=== PATIENT | female | born 1955 | race Caucasian/White ===

== ENCOUNTER → 2019-10-18 | Outpatient (CLI) | payer OTHER, MEDICARE ==
[~2019-10-18] MED LIST: ALBU2.5V8 IH; ATOR80TA72 PO; MULT-658 PO; UBID200C27 PO
[2019-10-18 14:21] LABS: BASO % 0 % (0-3); EOS # 0.2 x10^3/uL (0.0-0.7); EOS % 2 % (0-3); HEMATOCRIT 37.5 % (36.0-47.0); HEMOGLOBIN 12.3 g/dL (12.0-15.5); LYMPH # 2.8 x10^3/uL (1.0-4.8); LYMPH % 24 % (24-48); MEAN CORPUSCULAR HEMOGLOBIN 27 pg (25-35); MEAN CORPUSCULAR HGB CONC 33 g/dL (31-37); MEAN CORPUSCULAR VOLUME 83 fL (79-100); MONO # 0.4 x10^3/uL (0.0-1.1); MONO % 4 % (0-9); NEUT # 8.3 x10^3/uL (1.8-7.7); NEUT % 70 % (31-73); PLATELET COUNT 383 x10^3/uL (140-400); RED BLOOD COUNT 4.52 x10^6/uL (3.50-5.40); WHITE BLOOD COUNT 11.7 x10^3/uL (4.0-11.0)
[2019-10-18 14:46] LABS: ALBUMIN 3.6 g/dL (3.4-5.0); ALBUMIN/GLOBULIN RATIO 0.8 (1.0-1.7); CREATININE 0.7 mg/dL (0.6-1.0); GFR 83.7; POTASSIUM 3.4 mmol/L (3.5-5.1); TOTAL BILIRUBIN 0.2 mg/dL (0.2-1.0); TOTAL PROTEIN 7.9 g/dL (6.4-8.2)
== END | disposition home or self-care (01) ==
LOC: SURGPAT 12:25
PROVIDERS: ATTEND Obstetrics & Gynecology
DX: Z01.818 Encounter for other preprocedural examination (principal); Z88.2 Allergy status to sulfonamides; Z88.5 Allergy status to narcotic agent
CPT/HCPCS: 36415; 80053; 85025

== ENCOUNTER 2019-10-24 05:52 | Observation (INO) | payer OTHER ==
[~2019-10-24] VITALS: Ht 168.9 cm; Wt 86.2 kg
[2019-10-24] VITALS (8 sets, daily range): BP systolic 122–151; BP diastolic 70–88
[2019-10-24] MEDS ORDERED: BUPIVACAINE-EPI 0.25%-1:200000 MPF 30 ML VIAL. INJ ONE (06:00)
[2019-10-24] MEDS ORDERED: MORPHINE SULFATE 2 MG/ML VIAL. IV PRN ×2 (07:00→10:00)
[2019-10-24] MEDS ORDERED: HYDROmorphone 2 MG/ML VIAL IV PRN (07:00)
[2019-10-24] MEDS ORDERED: ONDANSETRON PF 4 MG/2 ML VIAL. IV PRN ×2 (07:00→10:00)
[2019-10-24] MEDS ORDERED: IV RINGERS,LACTATED 1000ML 1,000 ML IV SCH (07:00)
[2019-10-24] MEDS ORDERED: fentaNYL PF VIAL 100 MCG/2 ML VIAL IV PRN ×2 (07:00)
[2019-10-24] MEDS ORDERED: PROCHLORPERAZINE 10 MG/2 ML VIAL. IV PRN (07:00)
[2019-10-24] MEDS ORDERED: PROPOFOL 20 ML IV ONE (07:07)
[2019-10-24] MEDS ORDERED: ONDANSETRON PF 4 MG/2 ML VIAL. ONE (07:07)
[2019-10-24] MEDS ORDERED: INDIGOTINDISULFONATE SODIUM 40 MG/5 ML AMPUL. ONE (07:07)
[2019-10-24] MEDS ORDERED: FAMOTIDINE 20 MG/2 ML VIAL ONE (07:07)
[2019-10-24] MEDS ORDERED: LIDOCAINE 2% PF 5 ML VIAL. ONE (07:07)
[2019-10-24] MEDS ORDERED: KETOROLAC 30 MG/ML VIAL. ONE (07:07)
[2019-10-24] MEDS ORDERED: ESTROGENS, CONJ VAGINAL CREAM 30GM TUBE. ONE (07:07)
[2019-10-24] MEDS ORDERED: ROCURONIUM 50 MG/5 ML VIAL. ONE (07:08)
[2019-10-24] MEDS ORDERED: KETAMINE HCL IN NACL, ISO-OSM 50 MG/5 ML SYRINGE ONE (07:08)
[2019-10-24] MEDS ORDERED: MIDAZOLAM HCL/PF 2 MG/2 ML VIAL. ONE (07:08)
[2019-10-24] MEDS ORDERED: fentaNYL PF VIAL 100 MCG/2 ML VIAL ONE ×2 (07:08→09:53)
[2019-10-24] MEDS ORDERED: GLYCOPYRROLATE 1 MG/5 ML VIAL. ONE (07:38)
[2019-10-24] MEDS ORDERED: ALBUTEROL SULFATE 2.5 MG/3 ML NEBU. INH PRN (07:45)
[2019-10-24] MEDS ORDERED: ceFAZolin 2GM PREMIX 2 GM/50 ML BAG IV ONE (09:00)
[2019-10-24] MEDS ORDERED: NEOSTIGMINE METHYLSULFATE 5 MG/5 ML SYRINGE. ONE (09:07)
[2019-10-24] MEDS ORDERED: SEVOFLURANE > 120 MINUTES. IH ONE (09:07)
[2019-10-24] MEDS ORDERED: NEOMY/BACITR/POLYMYXIN OINT PACKET. TP ONE (09:22)
--- NOTE | 2019-10-24 09:53 | PDOC ---
BRIEF OPERATIVE NOTE Date: Oct 24, 2019 Pre-Op Diagnosis bilateral ovarian masses, vulvar warts Post-Op Diagnosis same Procedure Performed LAVH/BSO/removal of 3 vulvar warts on right side Surgeon Dr. Justina Rivas Turning Machine Operator PEPE Carvalho Anesthesiologist Dr. Bravo Anesthesia Type: General Blood Loss 25cc IV Fluid 1100cc Urine Output 150cc clear via witt Specimens Obtained cervix, uterus, bilateral tubes and enlarged ovaries, also vulvar warts Findings 7-8cm right adnexal mass, 5-6cm left adnexal mass, small uterus with normal bilateral tubes, normal appendix, 3 enlarged vulvar warts on right side Complications none Operative Note [id number] JUSTINA RIVAS MD Oct 24, 2019 09:52
[2019-10-24] MEDS ORDERED: SIMETHICONE 80 MG TAB.CHEW PO PRN (10:00)
[2019-10-24] MEDS ORDERED: oxyCODONE/APAP 5/325 1 TAB TABLET PO PRN (10:00)
[2019-10-24] MEDS ORDERED: ZOLPIDEM 5 MG TABLET. PO PRN (10:00)
[2019-10-24] MEDS ORDERED: diphenhydrAMINE HCL 25 MG CAPSULE PO PRN (10:00)
[2019-10-24] MEDS ORDERED: NALOXONE 0.4 MG/ML VIAL. IV PRN (10:00)
[2019-10-24] MEDS ORDERED: LACTULOSE 20 GM/30 ML SOLUTION. PO PRN (10:00)
[2019-10-24] MEDS ORDERED: diphenhydrAMINE 50 MG/ML VIAL IV PRN (10:00)
[2019-10-24] MEDS ORDERED: MAGNESIUM HYDROXIDE 2,400 MG/30 ML ORAL.SUSP. PO PRN (10:00)
[2019-10-24] MEDS ORDERED: MAG HYDROX/ALUMINUM HYD/SIMETH 30 ML ORAL.SUSP PO PRN (10:00)
[2019-10-24] MEDS ORDERED: 0.9 % SODIUM CHLORIDE 10 ML DISP.SYRIN. IV PRN (10:00)
[2019-10-24] MEDS ORDERED: CALCIUM CARBONATE 500 MG TAB.CHEW PO PRN (10:00)
--- NOTE | 2019-10-24 10:42 | OP ---
DATE OF SURGERY: 10/24/2019 PREOPERATIVE DIAGNOSES: Bilateral ovarian masses and vulvar warts. POSTOPERATIVE DIAGNOSES: Bilateral ovarian masses and vulvar warts. PROCEDURES: Laparoscopic-assisted vaginal hysterectomy, bilateral salpingo-oophorectomy, and removal, excision of 3 vulvar warts on the right side. SURGEON: Ej Rivas MD POLICE COMMUNICATIONS OPERATOR: PEPE Russell ANESTHESIOLOGIST: Dusty Bravo MD ANESTHESIA: General. ESTIMATED BLOOD LOSS: 25 mL. URINE OUTPUT: 150 mL, clear via Griffiths catheter. INTRAVENOUS FLUIDS: 1100 mL of Crystalloid. SPECIMENS: Cervix, uterus, bilateral tubes with enlarged ovaries, also vulvar warts. FINDINGS: She had a large 7-8 cm right adnexal mass and 5-6 cm left adnexal mass, a small normal appearing uterus with normal bilateral tubes, grossly normal appearing appendix and bowel. There was some mild adhesive disease on the left side upper that was left untouched and then 3 enlarged vulvar warts on the right side. COMPLICATIONS: None. DESCRIPTION OF PROCEDURE: This patient was taken to the operating room where general anesthesia was placed. The patient was placed in a dorsal lithotomy position in [facility]. The patient's abdomen and vagina were both prepped and draped in the normal sterile fashion and a Griffiths catheter had been inserted under sterile technique. Upon my arrival, a timeout was performed. Once everyone agreed on the patient and the procedure and that she had had a catheter in with her IV antibiotics, a bivalve speculum was placed in the patient's vagina. A single-tooth tenaculum was used to grasp the anterior lip of the cervix. A 10 mL of 0.25% Marcaine with epinephrine was used to circumferentially inject around the cervix for both hemodissection and hemostatic purposes later. The Valtchev uterine manipulator was placed through the endocervical os, locked on the single tooth tenaculum and the bivalve speculum was then removed. Top gloves were discarded and changed. Attention was then turned to the abdomen where a small supraumbilical skin incision was made with the scalpel. A curved Lisa was used to dissect through the subcuticular layer to the fascia. This was injected with 0.25% Marcaine with epinephrine. The 5 mm Visiport was used to directly enter the abdominal cavity. Opening patient pressure was 2-3 mmHg. Carbon dioxide gas was used to then appropriately insufflate the abdominal cavity to maintain a pressure of 15 mmHg. The patient was placed in Trendelenburg position. The right and left lower quadrant ports were made after transilluminating the abdominal wall, finding an area clear of any vasculature, injecting with local, making a small incision and placing the 5 mm atraumatic trocar in under direct visualization, 4-5 mL of air were placed in the trocar cuff. The camera was moved laterally to look at the umbilical port. It was also clear and the cuff was inflated on this as well. At this point all that could be seen was one of the large adnexal masses, I was able to flip it up and out of the way, find the normal bilateral tubes and a small uterus and then the left smaller mass, but it was still 6 cm was tucked in the posterior cul-de-sac. The right one was covering the uterus, so they were cut off fallen to the midline, anterior and posteriorly. I was able to identify both ureters very clearly. The right one was so heavy. I did decide to drain it a little bit and a needle was pushed in it, I got over 60 mL of clear straw-colored fluid out of it. I did drain some of it as well and used the prepared foods production team member to get it out. The left side I actually left whole initially and elevated it, found the ureter coursing low, crossed the infundibulopelvic ligament with the LigaSure, going under and hugging the ovary and crossing the left round ligament and going down and creating a bladder flap sharply while pushing the cervix and uterus cephalad. I used the monopolar tip to create the bladder flap sharply and take it all the way across. Then, the right tube and ovary were smaller and elevated and again I found the ureter coursing low, staying high on the IP ligament, cauterizing and cutting in, crossing the right round ligament, going down and meeting that bladder flap anteriorly and taking everything down. Once this was done, starting on the left side, the uterine vessels were obtained and going down hugging the cervix and going through the cardinal and broad ligaments to the level of the uterosacral. I then did cauterize and cut the uterosacrals as well and the left side was completely free. On the right side, I was able to get the uterines and then staying inside it, going low as well. Once everything was blanched and free, I went ahead and decided to drain a little bit on that left ovary as well just so it would come out easier vaginally when removing it and I got probably about 30 or 40 mL of gold winnie-colored fluid out as well and then all instruments were removed and attention was turned vaginally. At this point, a weighted speculum was placed in the patient's vagina. Thyroid [place] clamps were placed on the anterior and posterior lips of the cervix respectively. A scalpel was used to make a circumferential incision in the cervix. The Yankauer tip was used to gently push up the anterior bladder peritoneum and the scalpel was used to take away the anterior bladder peritoneum off the cervix. Anterior cul-de-sac did look like it was entered. Going around the sides and then posteriorly, it looked like it was in. When pulling on the Laheys to get on one of the sides as soon as I cut on that one side, the cervix, uterus, bilateral tubes and ovaries were delivered in total and passed off to permanent pathology. We had done almost a TLH above and got in the entire blood supply and freed it, so soon as we made our colpotomy anterior and posterior, the specimen completely released. I did put in a stitch securing the posterior peritoneum to the vaginal posterior cuff and placed a long weighted speculum in and still used a sponge stick to examine all the pedicles which appeared dry. I used a long Allis to grasp the anterior bladder peritoneum and then I took a 2-0 Vicryl through it, took the long speculum out and replaced it with the short weighted vaginal through the left uterosacral ligament, posterior peritoneum and right uterosacral ligament, thus closing the peritoneum in a pursestring-like fashion with a full length 2-0 Vicryl. Once this was done, the cuff was closed in an anterior to posterior running locked fashion with a full length 2-0 Vicryl and tied to that posterior cuff tag. It was indeed hemostatic. At this point, once hemostasis was assured, the weighted speculum was removed and the 3 vulvar warts were excised using Adson's pickups and a 15 blade scalpel. A 2-0 Vicryl was used to close up these incisions. There were three large, 2 pedunculated, 1 flap on the right side. These were passed off for permanent pathology as well. Once these were closed and sewed shut, all gloves were discarded and changed and attention was turned abdominally for a second look above. The patient was placed back in Trendelenburg. Gas was reinsufflated. Copious irrigation revealed hemostasis. The right and left pericolic gutters were clear. The right upper quadrant liver edge looked normal. The appendix looked grossly normal after copious irrigation and there was nothing at all in the cul-de-sac, Tisseel was placed over the remaining pedicles. The right and left lower quadrant ports, the gas was taken out of the trocar. Air was taken out of the trocar sleeve. These were removed under direct visualization. These too were hemostatic. The cul-de-sac remained dry, so the air was taken out of the cuff on this. The gas was released from that supraumbilical trocar. Once it was all out, it was removed as well. All 3 trocar sites were closed using 4-0 nylon at the skin. The patient was then awakened from anesthesia and brought to recovery room in stable condition. EJ RIVAS MD DR: DAYO/irma JOB#: [id number] / [id number]
[2019-10-24] MEDS: HYDROcodone/APAP 5/325MG 1 TAB TABLET PO PRN ×2 (14:23→19:44)
[2019-10-25] VITALS: BP 147/71
[2019-10-25 04:00] VITALS: BP 146/68
[2019-10-25 05:06] LABS: CALCIUM 8.8 mg/dL (8.5-10.1); CREATININE 0.7 mg/dL (0.6-1.0); GFR 83.7; POTASSIUM 4.3 mmol/L (3.5-5.1)
[2019-10-25] MEDS: HYDROcodone/APAP 5/325MG 1 TAB TABLET PO PRN (06:44)
--- NOTE | 2019-10-25 09:00 | PDOC ---
SURGICAL PROGRESS NOTE Subjective Doing well without complaints. Scant VB. Ambulating well, tolerating regular diet and fluids without n/v . Voiding without catheter. Wants to go home Vital Signs Vital Signs Date Time Temp Pulse Resp B/P (MAP) Pulse Ox O2 Delivery O2 Flow Rate FiO2 10/25/19 06:44 97 Room Air 10/25/19 04:00 98.1 74 20 146/68 (94) 98.1 10/24/19 09:56 10.0 I&O Intake and Output 10/25/19 07:00 Intake Total 2800 ml Output Total 625 ml Balance 2175 ml Intake Oral 1450 ml IV Total 1350 ml Output Urine Total 600 ml Estimated Blood Loss 25 ml # Voids 2 PATIENT HAS A LOPEZ: No General: Alert, Oriented X3, Cooperative, No acute distress HEENT: Atraumatic Heart: Regular rate Abdomen: Soft, No tenderness, Other (all port sites c/d/i) Extremities: No clubbing, No cyanosis, No edema, No tenderness/swelling Skin: No rashes, No breakdown Neuro: Normal speech Psych/Mental Status: Mental status NL, Mood NL Labs Laboratory Tests Test 10/25/19 04:45 Hematocrit 35.6 % (36.0-47.0) Sodium Level 138 mmol/L (136-145) Potassium Level 4.3 mmol/L (3.5-5.1) Chloride Level 102 mmol/L (98-107) Carbon Dioxide Level 26 mmol/L (21-32) Anion Gap 10 (6-14) Blood Urea Nitrogen 6 mg/dL (7-20) Creatinine 0.7 mg/dL (0.6-1.0) Estimated GFR (Cockcroft-Gault) 83.7 Glucose Level 131 mg/dL (70-99) Calcium Level 8.8 mg/dL (8.5-10.1) Laboratory Tests Test 10/25/19 04:45 Hematocrit 35.6 % (36.0-47.0) Sodium Level 138 mmol/L (136-145) Potassium Level 4.3 mmol/L (3.5-5.1) Chloride Level 102 mmol/L (98-107) Carbon Dioxide Level 26 mmol/L (21-32) Anion Gap 10 (6-14) Blood Urea Nitrogen 6 mg/dL (7-20) Creatinine 0.7 mg/dL (0.6-1.0) Estimated GFR (Cockcroft-Gault) 83.7 Glucose Level 131 mg/dL (70-99) Calcium Level 8.8 mg/dL (8.5-10.1) I have reviewed the following labs, vitals, nursing Cardiovascular: HTN Pulmonary: COPD GI: Diverticulosis Heme/Onc: No pertinent hx Psych: No pertinent hx Infectious disease: No pertinent hx Assessment/Plan POD#1 s/p LAVH/BSO and vulvar wart removal Routine PO care d/c to home NPV x 6 weeks light/limited activity x 2 weeks keep scheduled appt in one week pt already has narcotic script at home ok for OTC ibuprofen as needed also call or return sooner for any other questions or concerns not limited to but including pain unrelieved with pain meds, increased or unexplained vaginal bleeding or T>100.4 EJ SHELDON MD Oct 25, 2019 09:00
--- NOTE | 2019-10-25 09:04 | PDOC3 ---
Discharge Summary Visit Information Date of Admission: Oct 24, 2019 Date of Discharge: Oct 25, 2019 Final Diagnosis bilateral ovarian masses and vulvar warts Brief Hospital Course Allergies Allergies Coded Allergies Type Severity Reaction Last Updated Verified Sulfa (Sulfonamide Antibiotics) Allergy Intermediate Itching 10/18/19 Yes codeine Allergy Unknown Nausea and Vomiting 10/24/19 Yes Vital Signs Vital Signs Date Time Temp Pulse Resp B/P (MAP) Pulse Ox O2 Delivery O2 Flow Rate FiO2 10/25/19 06:44 97 Room Air 10/25/19 04:00 98.1 74 20 146/68 (94) 98.1 10/24/19 09:56 10.0 Lab Results Laboratory Tests Test 10/25/19 04:45 Hematocrit 35.6 % (36.0-47.0) Sodium Level 138 mmol/L (136-145) Potassium Level 4.3 mmol/L (3.5-5.1) Chloride Level 102 mmol/L (98-107) Carbon Dioxide Level 26 mmol/L (21-32) Anion Gap 10 (6-14) Blood Urea Nitrogen 6 mg/dL (7-20) Creatinine 0.7 mg/dL (0.6-1.0) Estimated GFR (Cockcroft-Gault) 83.7 Glucose Level 131 mg/dL (70-99) Calcium Level 8.8 mg/dL (8.5-10.1) Laboratory Tests Test 10/25/19 04:45 Hematocrit 35.6 % (36.0-47.0) Sodium Level 138 mmol/L (136-145) Potassium Level 4.3 mmol/L (3.5-5.1) Chloride Level 102 mmol/L (98-107) Carbon Dioxide Level 26 mmol/L (21-32) Anion Gap 10 (6-14) Blood Urea Nitrogen 6 mg/dL (7-20) Creatinine 0.7 mg/dL (0.6-1.0) Estimated GFR (Cockcroft-Gault) 83.7 Glucose Level 131 mg/dL (70-99) Calcium Level 8.8 mg/dL (8.5-10.1) Brief Hospital Course Ms. Batista is a 64 old female who presented with bilateral ovarian masses and vulvar warts. She underwent an LAVH/BSO and excision of vulvar warts without complications. She has had an unremarkable postoperative course and is ambulating, tolerating po, voiding and desiring to go home. Assessment Assessment POD#1 s/p LAVH/BSO and vulvar wart removal Routine PO care d/c to home NPV x 6 weeks light/limited activity x 2 weeks keep scheduled appt in one week pt already has narcotic script at home ok for OTC ibuprofen as needed also call or return sooner for any other questions or concerns not limited to but including pain unrelieved with pain meds, increased or unexplained vaginal bleeding or T>100.4 Discharge Information Condition at Discharge: Improved Follow Up: Weeks Disposition/Orders: D/C to Home Scheduled Atorvastatin Calcium (Atorvastatin Calcium) 80 Mg Tablet, 100 MG PO QHS for FOR HIGH CHOLESTEROL, (Reported) Entered as Reported by: GALE CHAIDEZ on 10/18/191241 Last Taken: Unknown Dose on 10/21/19 Last Action: HELD on 10/24/19742 by EJ SHELDON Multivits-Min/Fa/Lycopene/Lut (Centrum Silver Tablet) 1 Each Tablet, 1 EACH PO DAILY for VITAMIN, (Reported) Entered as Reported by: GALE CHAIDEZ on 10/18/191241 Last Taken: Unknown Dose on 10/14/19 Last Action: HELD on 10/24/19742 by EJ SHELDON Ubidecarenone (Coenzyme Q-10) 200 Mg Capsule, 1 CAP PO DAILY for HEART for 30 Days, #30 Ref 0 (Reported) Entered as Reported by: GALE CHAIDEZ on 10/18/191242 Last Taken: Unknown Dose on 10/14/19 Last Action: HELD on 10/24/19742 by EJ SHELDON Scheduled PRN Albuterol Sulfate (Proair Hfa Inhaler) 8.5 Gm Hfa.aer.ad, 2 PUFF IH PRN Q4-6HRS PRN for wheezing for 21 Days, #1 Ref 0 (Reported) Entered as Reported by: GALE CHAIDEZ on 10/18/191241 Last Taken: Unknown Dose on 10/23/19 0515 Last Action: Continued on 10/24/19742 by EJ SHELDON Patient Instructions Patient Instructions POD#1 s/p LAVH/BSO and vulvar wart removal Routine PO care d/c to home NPV x 6 weeks light/limited activity x 2 weeks keep scheduled appt in one week pt already has narcotic script at home ok for OTC ibuprofen as needed also call or return sooner for any other questions or concerns not limited to but including pain unrelieved with pain meds, increased or unexplained vaginal bleeding or T>100.4 Hemodynamically unstable?: No Hemodynamically unstable?: No Operative site or wounds?: Yes Poss blood loss?: No Persistent Pain & Nausea?: No Poss Infection?: No EJ SHELDON MD Oct 25, 2019 09:04
[2019-10-25 09:59] VITALS: BP 153/73
--- NOTE | 2019-10-25 10:00 | NUR ---
Discharge Discharge instructions given to patient and family at this time, no questions or concerns noted. IV Dc'd, tolerated well. Patient left in wheelchair with all her belongings. To follow up with DR Rivas prior to 2 weeks.
[2019-10-25 11:01] VITALS: BP 107/58
--- NOTE | 2019-10-28 15:07 | PATHOLOGY ---
[facility] Accession Number: [id number] . 01 Material submitted: . PART A: uterus - CERVIX,UTERUS,BILATERAL TUBES,BILATERAL OVARIES PART B: vulva - VULVA WARTS . 01 Clinical history: . Ovarian cyst, endometrial thickening . 02 Diagnosis: A. Uterus and attached bilateral fallopian tubes and ovaries, hysterectomy with bilateral salpingo-oophorectomy: - Leiomyomas, uterine corpus, several, the largest measuring 0.6 cm in greatest dimension. - Mild chronic cervicitis with focal squamous metaplasia. - Endometrial polyps. - Adenomyosis, uterine corpus, focal. - Involutional changes of bilateral fallopian tubes. - Serous cystomas of bilateral ovaries. . B. Segments of skin, vulva: - Vulvar condylomata, with focal chronic inflammation. - Seborrheic keratosis (1). ([facility] 1332 Local . 02 Comment: There is no atypia or evidence of malignancy. ([facility] 10/28/2019) . 02 Electronically signed: . Miguel Lizama MD, Pathologist NPI- [id number] . 01 Gross description: . A. The specimen is received in formalin labeled "Radha Batista, cervix, uterus, bilateral tubes, bilateral ovaries". Received is a 51 g, 7.4 x 4.1 x 3.0 cm uterus with attached cervix and attached adnexa, weighing 14 and 9 g, left and right, respectively. The uterine serosa is pink-chaudhry and smooth in appearance displaying a single serosal nodule measuring 0.3 cm. The 1.2 cm cervical os is surrounded by pale chaudhry to pink-red, wrinkled ectocervical mucosa. The uterus is oriented using the peritoneal reflection and the anterior paracervical margin is inked black. The uterus is opened laterally to reveal a pale chaudhry endocervical canal measuring 2.3 cm in length. The endometrial cavity is triangular measuring 3.7 cm in length by 1.3 cm in width. The endometrium is pale chaudhry, glistening to slightly granular in appearance and measures up to 0.2 cm in thickness. Serial sectioning reveals a chaudhry-pink, trabeculated myometrium measuring 1.3 cm in thickness displaying three intramural fibroids ranging in size from 0.4 to 0.6 cm. . The left adnexa consists of a fimbriated fallopian tube measuring 5.9 cm in length by up to up to 0.9 cm in diameter attached to a 6.6 x 3.5 x 1.1 cm cystic ovary. Sectioning through the fallopian tube reveals a pinpoint to patent lumen and the fallopian tube appears grossly unremarkable. Sectioning through the ovary reveals two unilocular cystic structures measuring 1.6 and 5.5 cm filled with blood-tinged fluid. The cyst wall is smooth and slightly vascularized in appearance with no grossly distinct excrescences. Normal ovarian stroma is not grossly identified. . The right adnexa consists of a fimbriated fallopian tube measuring 6.3 cm in length by up to 0.5 cm in diameter attached to a 5.8 x 3.1 x 1.4 cm cystic ovary. Sectioning through the fallopian tube reveals a pinpoint to patent lumen and the fallopian tube appears grossly unremarkable. Sectioning through the ovary reveals a unilocular cystic structure measuring 4.2 cm that is devoid of content. The cyst rich are smooth in appearance with no grossly distinct excrescences. Normal ovarian stroma is not grossly identified. The specimen is submitted representatively as follows: . A1 12:00 cervix A2 6:00 cervix A3 serosal nodule A4 anterior endomyometrium with fibroid A5 posterior endomyometrium A6 intramural fibroids A7-A8 left adnexa A9-A10 right adnexa. . B. The specimen is received in formalin, labeled "Radha Batista, vulva warts". Received are six segments of pink-vines, wrinkled to papillary-appearing skin ranging in size from 0.4 x 0.3 x 0.1 to 1.7 x 1.3 x 0.5 cm in greatest dimensions. The surgical margins are inked. The specimen is submitted entirely as follows: . B1 intact segments B2-B4 one bisected segment in each cassette. ([facility]; 10/24/2019) QAC/QAC 10/28/2019 0935 Local . 02 Pathologist provided ICD-10: D25.9, N72, N84.0, N80.0, L82.1 . 02 CPT . 864693, 208621 Specimen Comment: A courtesy copy of this report has been sent to [phone], [phone] Specimen Comment: [id number] Specimen Comment: Report sent to / DR FENTON Performed at: 01 [facility] [address], [place] [id number] MD Clifford Roberto MD Phone: [phone] Performed at: 02 [facility] [address] [place], [place] [id number] MD Miguel Lizama MD Phone: [phone]
== END 2019-10-25 11:00 | disposition home or self-care (01) ==
LOC: SURG 05:52 → EDUNIT# 07:30 → 3 NORTH 10:00
PROVIDERS: ADMIT Obstetrics & Gynecology; ATTEND Obstetrics & Gynecology
DX: N83.202 Unspecified ovarian cyst, left side (principal); N83.201 Unspecified ovarian cyst, right side; A63.0 Anogenital (venereal) warts
CPT/HCPCS: 36415; 56620; 58552; 80048; 85014; 86850; 86900; 86901; 88305; 88307; 94640; 96374; 96375; A7015; G0378; G0379; J0696; J2001; J2250; J2270; J2405; J2704; J2710; J3010; J3490; J7030; J7120; J7613; J1885